=== PATIENT | male | born 1980 | race Two or more races ===

== ENCOUNTER 2023-12-19 16:01 | Emergency (ER) | payer BC, OTHER ==
[~2023-12-19] VITALS: Ht 162.6 cm; Wt 80.7 kg
[2023-12-19 16:16] VITALS: BP 116/73; PULSE 68; RESP 18; TEMP 97.9; O2SAT 95
--- NOTE | 2023-12-19 17:30 | NUR ---
PT AMBULATED TO ER BED 11
[2023-12-19 17:43] LABS: BASOPHILS % (AUTO) 0.3 % (0.0-2.0); EOSINOPHILS # (AUTO) 0.2 K/uL (0-0.4); HEMATOCRIT 46.6 % (36-52); HEMOGLOBIN 15.5 g/dL (12.0-18.0); LYMPHOCYTES % (AUTO) 18.1 % (20.5-51.1); MEAN CORPUSCULAR HEMOGLOBIN 29 pg (27-31); MEAN CORPUSCULAR HGB CONC 33 g/dL (33-37); MEAN CORPUSCULAR VOLUME 86.9 fL (80-94); MONOCYTES # (AUTO) 0.7 K/uL (0.8-1.0); MONOCYTES % (AUTO) 6.5 % (1.7-9.3); NEUTROPHILS # (AUTO) 8.3 K/uL (1.8-7.7); NEUTROPHILS % (AUTO) 73.1 % (42.2-75.2); PLATELET COUNT (AUTO) 265 K/uL (140-450); RED BLOOD CELL COUNT(AUTO) 5.36 MIL/uL (4.20-6.10); RED CELL DISTRIBUTION WIDTH 14.6 % (11.6-13.7); WHITE BLOOD COUNT (AUTO) 11.3 K/uL (4.8-10.8)
--- NOTE | 2023-12-19 17:55 | NUR ---
PATIENT PRESENTS TO ED WITH DIZZINESS, NAUSEA/VOMITING AND UNSTABLE ON FEET . PT STATES HE'S VOMITED 5X SINCE LAST NIGHT AND FEELS DRUNK ON HIS FEET . SKIN IS PINK/WARM/DRY; AAOX4 WITH EVEN AND STEADY GAIT; LUNGS CLEAR BL; HR EVEN AND REGULAR; PT DENIES ANY FEVER, CP, SOB, OR COUGH AT THIS TIME; PATIENT STATES PAIN OF 0/10 AT THIS TIME; VSS; PATIENT POSITIONED FOR COMFORT; HOB ELEVATED; BEDRAILS UP X2; BED DOWN. ER MD MADE AWARE OF PT STATUS. AT BEDSIDE
[2023-12-19 18:07] LABS: ALANINE AMINOTRANSFERASE 117 U/L (12-78); ALBUMIN 3.6 g/dL (3.4-5.0); ALKALINE PHOSPHATASE 67 U/L (50-136); ANION GAP 14.5 (8-16); ASPARTATE AMINOTRANSFERASE 39 U/L (15-37); CHLORIDE 101 mmol/L (98-107); CREATININE 0.8 mg/dL (0.6-1.3); GFR ARICAN-AMERICAN 137 mL/min (>90); GFR NON ARICAN-AMERICAN 113 mL/min (>90); GLUCOSE 113 mg/dL (74-106); POTASSIUM 3.5 mmol/L (3.5-5.1); SODIUM SERUM 138 mmol/L (136-145); TOTAL BILIRUBIN 1.5 mg/dL (0.0-1.0); TOTAL PROTEIN, SERUM 7.3 g/dL (6.4-8.2); UREA NITROGEN, BLOOD 14 mg/dL (7-18)
[2023-12-19] MEDS: ONDANSETRON 4 MG/2 ML VIAL IVP ONE (18:41)
[2023-12-19] MEDS: NACL 0.9% 1,000 ML IV ONE (18:42)
[2023-12-19] MEDS: MECLIZINE 25 MG TAB PO ONE (18:42)
[2023-12-19 19:26] VITALS: O2SAT 99
--- NOTE | 2023-12-19 19:26 | NUR ---
Pt report given to SHAHNAZ BLAKE. Transfer of care at this time.
--- NOTE | 2023-12-19 19:26 | NUR ---
RECEIVED REPORT FROM RUTH ANN HUNT. CONTINUE PLAN OF CARE AT THIS TIME.
--- NOTE | 2023-12-19 19:27 | NUR ---
43YO M BIB SELF C.O DIZZINESS X 2 DAYS. PT DENIES PAIN AT THIS TIME. DENIES ANY OTHER COMPLAINTS. VSS ON BEDSIDE MONITOR. CALL LIGHT WITHIN REACH. SAFETY MEASURES IN PLACE. ALLERGIES: NAPROXEN NO PMHX
[2023-12-19 19:45] LABS: APPEARANCE,URINE CLEAR (CLEAR); BILIRUBIN,URINE NEGATIVE (NEGATIVE); BLOOD, URINE NEGATIVE (NEGATIVE); COLOR,URINE YELLOW (YELLOW); LEUKOCYTE ESTERASE ,URINE NEGATIVE (NEGATIVE); NITRITE, URINE NEGATIVE (NEGATIVE); PROTEIN,URINE NEGATIVE (NEGATIVE); UGLUCOSE NEGATIVE (NEGATIVE); UROBILINOGEN,URINE 0.2 EU/dL (0.2 - 1)
[2023-12-19 19:55] LABS: AMPHETAMINE, URINE NEGATIVE ng/ml (NEG <=1000); BARBITURATE, URINE NEGATIVE ng/ml (NEG <=200)
[2023-12-19 19:56] LABS: BENZODIAZEPINE, URINE NEGATIVE ng/mL (NEG <=200); CANNABINOID, URINE NEGATIVE ng/mL (NEG <=50); COCAINE, URINE NEGATIVE ng/mL (NEG <=300); OPIATE, URINE NEGATIVE ng/mL (NEG <=2000); PHENCYCLIDINE SCREEN,URINE NEGATIVE ng/mL (NEG <=25)
[2023-12-19] MEDS: METOCLOPRAMIDE 10 MG/2 ML INJ VIAL IVP ONE (20:03)
[2023-12-19] MEDS ORDERED: ONDA-188 SL (20:15)
[2023-12-19] MEDS ORDERED: MECL-303 PO (20:15)
[2023-12-19 20:27] VITALS: BP 102/68; PULSE 55; RESP 16; TEMP 98.1; O2SAT 98
--- NOTE | 2023-12-19 20:27 | NUR ---
Patient discharged with v/s stable. Written and verbal after care instructions given and explained. Patient verbalized understanding. Ambulatory with steady gait. All questions addressed prior to discharge. Advised to follow up with PMD.
== END 2023-12-19 20:27 | disposition home or self-care (01) ==
LOC: MED 16:01
DX: R42 Dizziness and giddiness (principal); R11.2 Nausea with vomiting, unspecified; Z90.49 Acquired absence of other specified parts of digestive tract; E11.9 Type 2 diabetes mellitus without complications; Z98.890 Other specified postprocedural states; Z79.899 Other long term (current) drug therapy; Z88.6 Allergy status to analgesic agent
CPT/HCPCS: 36415; 70450; 80053; 80305; 81003; 83880; 84484; 85025; 93005; 96361; 96374; 96375; 99285; J2405; J2765; J7030; J8597